=== PATIENT | female | born 1980 | race Caucasian/White ===

== ENCOUNTER 2018-02-17 16:48 | Emergency (ER) | payer BC ==
[2018-02-17] MEDS ORDERED: Ondansetron 4 MG Tab.DIS PO ONE (17:53)
[2018-02-17] MEDS ORDERED: HYDROmorphone 1 MG/ML Syringe IM ONE (17:53)
--- NOTE | 2018-02-17 18:27 | EDM.PDOC ---
ED HPI GENERAL MEDICAL PROBLEM - General Chief Complaint: Gastrointestinal Problem Stated Complaint: HERNIA ISSUE Time Seen by Provider: 02/17/18 17:45 Source of Information: Reports: Patient History Limitations: Reports: No Limitations - History of Present Illness INITIAL COMMENTS - FREE TEXT/NARRATIVE: 37 year old female presents for evaluation and treatment of abdominal pain to the umbilical area. Patient reports a burning pain to the umbilical area since earlier today. She is visiting from out of town and was at a basketball game when the pain started suddenly. She went to [employer] and the pain continued throughout [employer]. She reports at one point she felt lightheaded, nausea and had an episode of diarrhea prior to arrival in the ER. She Did not vomiting. She has appreciated a lump to the umbilical area that she feels may be a hernia. She has appreciated this lump intermittently in the past but it has never caused her significant pain before. She has never been seen for a the hernia. Middle Epigastric Pain Score (Numeric/FACES): 3 - Related Data Allergies Allergy/AdvReac Type Severity Reaction Status Date / Time No Known Allergies Allergy Verified 02/17/18 17:02 Home Meds: Home Meds . [No Known Home Meds] 02/17/18 [History] Past Medical History - Past Health History Medical/Surgical History: Denies Medical/Surgical History [employer] History: Reports: - Past Surgical History HEENT Surgical History: Reports: Oral Surgery Social & Family History - Tobacco Use Smoking Status *Q: Never Smoker Second Hand Smoke Exposure: No - Caffeine Use Caffeine Use: Reports: Coffee - Recreational Drug Use Recreational Drug Use: No ED ROS GENERAL - Review of Systems Review Of Systems: See Below Constitutional: Reports: Diaphoresis GI/Abdominal: Reports: Abdominal Pain (periumbilical), Diarrhea (x1 MEDICAL RECORDS ANALYST), Nausea. Denies: Vomiting : Reports: No Symptoms ED EXAM, GI/ABD - Physical Exam Exam: See Below Exam Limited By: No Limitations General Appearance: Alert, WD/WN, No Apparent Distress, Thin Nose: Normal Inspection Throat/Mouth: Normal Inspection, Normal Voice, No Airway Compromise Respiratory/Chest: No Respiratory Distress, Lungs Clear, Normal Breath Sounds Cardiovascular: Normal Peripheral Pulses, Regular Rate, Rhythm, No Murmur GI/Abdominal Exam: Normal Bowel Sounds, Soft, Tender (periumbilical hernia approximately quater sized, tender to palpation, no overlying erythema) Neurological: Alert, Oriented, Normal Cognition Psychiatric: Normal Affect, Normal Mood Skin Exam: Warm, Dry, Normal Color Course - Vital Signs Last Recorded V/S: Last Vital Signs Temp 98.7 F 02/17/18 16:58 Pulse 72 02/17/18 16:58 Resp 13 02/17/18 16:58 BP 117/93 H 02/17/18 16:58 Pulse Ox 98 02/17/18 16:58 - Orders/Labs/Meds Meds: Medications Discontinued Medications Generic Name Dose Route Start Last Admin Trade Name Jair PRN Reason Stop Dose Admin Hydromorphone HCl 0.5 mg 02/17/18 17:53 02/17/18 18:31 Dilaudid IM 02/17/18 17:54 Not Given ONETIME ONE Ondansetron HCl 4 mg 02/17/18 17:53 02/17/18 18:31 Zofran Odt PO 02/17/18 17:54 Not Given ONETIME ONE - Re-Assessments/Exams Free Text/Narrative Re-Assessment/Exam: 02/17/18 18:19 RN went to give medications, after laying flat and gently rubbing the area the patient was able to reduce the hernia. She declined medication and feels comfortable going home at this point. I am recommending follow-up with general surgery to have this fixed in the near future. No heavy lifting. Discharge instructions as documented. Departure - Departure Time of Disposition: 18:21 Disposition: Home, Self-Care 01 Condition: Fair Clinical Impression: Umbilical hernia - Discharge Information *PRESCRIPTION DRUG MONITORING PROGRAM REVIEWED*: No *COPY OF PRESCRIPTION DRUG MONITORING REPORT IN PATIENT FIOR: No Instructions: Umbilical Hernia, Adult Referrals: PCP,Not In Area [Primary Care Provider] - Forms: ED Department Discharge Additional Instructions: You may take [id number] Tylenol or Motrin as needed for discomfort. If this hernia returns, recommend laying flat and trying to relax. you may gently massaged area until comes back in. Please return to the ER if you having severe pain and are unable to do this yourself. Recommend seen a general surgeon to have the hernia repaired. No heavy lifting, do not recommend lifting over 10 pounds until you have this hernia fixed. Please return to the ER for symptoms change or worsen.
== END 2018-02-17 18:32 | disposition home or self-care (01) ==
LOC: JD.ED 16:48
DX: K42.9 Umbilical hernia without obstruction or gangrene (principal)
CPT/HCPCS: 99283